=== PATIENT | female | born 1995 | race African-American/Black ===

== ENCOUNTER 2017-03-23 17:10 | Emergency (ER) | payer SELFPAY ==
[~2017-03-23] VITALS: Ht 157.5 cm; Wt 54.0 kg
[2017-03-23 19:54] LABS: BASOPHILS % 0.3 % (0.0-2.0); EOSINOPHILS % 1.8 % (0.0-5.0); HEMATOCRIT. 34.1 % (36.0-48.0); HEMOGLOBIN. 11.8 g/dL (12.0-16.0); LYMPHOCYTES % 20.7 % (20.0-50.0); MEAN CORPUSCULAR HEMOGLOBIN 27.9 pg (28.0-32.0); MEAN CORPUSCULAR VOLUME 80.9 fL (81.0-99.0); MEAN PLATELET VOLUME 7.7 fl (7.4-10.4); MONOCYTES % 3.7 % (2.0-8.0); NEUTROPHILS % 73.5 % (40.0-76.0); PLATELET 403 x1000/uL (130-400); RED BLOOD CELL COUNT 4.22 mill/uL (4.2-5.4); RED CELL DISTRIBUTION WIDTH 13.2 % (11.6-14.6)
[2017-03-23 19:57] LABS: CHLORIDE 106 mEq/L (98-107)
[2017-03-23 20:02] LABS: CARBON DIOXIDE 23 mEq/L (21-32)
[2017-03-23 20:03] LABS: BG BASE EXCESS -1.8 mmol/L (-2.0-2.0); BG FRACTION INSPIRED OXYGEN 21; BG HCO3 ACT 21.2 mmol/L (22.0-26.0); BG METHEMOGLOBIN 0.3 % (0.0-1.5); BG OXYHEMOGLOBIN 96.7 % (94.0-97.0); BG PCO2 30.8 mmHg (35.0-45.0); BG PH 7.456 (7.350-7.450); BG SAMPLE SITE RIGHT RADIAL; BG TOTAL HEMOGLOBIN 11.8 g/dL (12.0-18.0); BG VENT MODE ROOM AIR
[2017-03-23] MEDS: ONDANSETRON HCL 4MG TABLET PO ONE (20:41)
[2017-03-23] MEDS: ACETAMINOPHEN 325MG TABLET PO ONE (20:41)
[2017-03-23 21:14] VITALS: BP 102/60
[2017-03-23] MEDS ORDERED: PNV1TABL76 MT (22:12)
== END 2017-03-23 21:19 | disposition home or self-care (01) ==
LOC: ER 17:50
DX: O26.892 Other specified pregnancy related conditions, second trimester (principal); Z77.098 Contact with and (suspected) exposure to other hazardous, chiefly nonmedicinal, chemicals; Z3A.20 20 weeks gestation of pregnancy; X58.XXXA Exposure to other specified factors, initial encounter; T75.89XA Other specified effects of external causes, initial encounter; Y93.89 Activity, other specified; Y92.813 Airplane as the place of occurrence of the external cause; Z90.49 Acquired absence of other specified parts of digestive tract
CPT/HCPCS: 36415; 36600; 80053; 82375; 82805; 85025; 99284; Q0162

== ENCOUNTER 2017-03-23 21:28 | Observation (INO) | payer OTHER, MEDICAID ==
[2017-03-23] MEDS ORDERED: PNV1TABL76 MT (22:12)
== END 2017-03-23 22:30 | disposition home or self-care (01) ==
LOC: L&D 21:28
PROVIDERS: ADMIT Obstetrics & Gynecology; ATTEND Obstetrics & Gynecology
DX: O26.892 Other specified pregnancy related conditions, second trimester (principal); Z77.098 Contact with and (suspected) exposure to other hazardous, chiefly nonmedicinal, chemicals; Z3A.20 20 weeks gestation of pregnancy; X58.XXXA Exposure to other specified factors, initial encounter; T75.89XA Other specified effects of external causes, initial encounter; Y93.89 Activity, other specified; Y92.813 Airplane as the place of occurrence of the external cause
CPT/HCPCS: 99281; G0378